=== PATIENT | male | born 1990 | race Caucasian/White ===

== ENCOUNTER 2022-06-13 21:45 | Emergency (ER) | payer OTHER ==
[~2022-06-13 21:45] MED LIST: ANAPROX DS550 MG PO; ANTIBIOTIC O500 U/GM TP; HYDROCODONE BIT1 T11 PO; KEFLEX500 M1 PO; MOTRIN800 MG PO; NAPROSYN500 MG PO; SEPTRA DS 800 M1 TAB PO
== END 2022-06-13 23:31 | disposition home or self-care (01) ==
LOC: ED 21:45
DX: Z02.1 Encounter for pre-employment examination (principal)